=== PATIENT | female | born 1990 | race Caucasian/White ===

== ENCOUNTER 2023-03-06 13:50 | Emergency (ER) | payer BC ==
[2023-03-06 14:04] VITALS: RESP 18
[2023-03-06] MEDS ORDERED: SODIUM CHLORIDE 0.9% 1,000 ML IV STA (14:05)
--- NOTE | 2023-03-06 14:12 | ED ---
SOB HPI - General Chief Complaint: Shortness of Breath Stated Complaint: Increased heart rate Time Seen by Provider: 03/06/23 13:53 Source: patient, EMS, RN notes reviewed Mode of arrival: EMS Limitations: no limitations - History of Present Illness Initial Comments: This is a 32-year-old female who presents to the emergency department for shortness of breath and palpitations. Patient states she was sitting at her desk at work, when she started to feel like her heart was racing and she couldn't breathe. She then started to feel very dizzy, weak, and nauseous. States that she currently feels generally unwell and tired. Denies any chest pain. Denies any history of similar symptoms in the past. States that yesterday she felt fine. 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 MD Complaint: shortness of breath - Related Data Home Medications Medication Instructions Recorded Confirmed No Known Home Medications 03/06/23 03/06/23 Allergies Allergy/AdvReac Type Severity Reaction Status Date / Time No Known Allergies Allergy Verified 03/06/23 14:21 Review of Systems ROS Statement: Those systems with pertinent positive or pertinent negative responses have been documented in the HPI. ROS Other: All systems not noted in ROS Statement are negative. Past Medical History Past Medical History: Thyroid Disorder Additional Past Medical History / Comment(s): Leslye History of Any Multi-Drug Resistant Organisms: None Reported Past Surgical History: No Surgical Hx Reported Past Psychological History: Anxiety Smoking Status: Vaper Past Alcohol Use History: Occasional Past Drug Use History: None Reported General Exam Limitations: no limitations General appearance: alert, in no apparent distress Head exam: Present: atraumatic, normocephalic, normal inspection Respiratory exam: Present: normal lung sounds bilaterally. Absent: respiratory distress, wheezes, rales, rhonchi, stridor Cardiovascular Exam: Present: normal rhythm, tachycardia Neurological exam: Present: alert, oriented X3, CN II-XII intact Psychiatric exam: Present: normal affect, normal mood Skin exam: Present: warm, dry, intact, normal color. Absent: rash Course Vital Signs 03/06/23 03/06/23 03/06/23 13:53 15:34 16:36 Temperature 98.2 F 98.6 F Pulse Rate 105 H 93 85 Respiratory 18 18 18 Rate Blood Pressure 125/70 117/58 116/60 O2 Sat by Pulse 100 100 98 Oximetry Medical Decision Making - Medical Decision Making This is a 32-year-old female who presents to the emergency department for shortness of breath and palpitations. Was pt. sent in by a medical professional or institution? @ -No Did you speak to anyone other than the patient for history? @ -No Did you review nursing and triage notes? @ -Yes, and I agree, it is accurate with regards to the patient's symptoms. Were old charts reviewed? @ -No Differential Diagnosis? @ -Differential Dyspnea: Coronary syndrome, arrhythmia, tamponade, asthma, COPD, pulmonary embolism, pneumonia, pneumothorax, pulmonary effusion, anaphylaxis, diabetic ketoacidosis, flailed chest, pulmonary contusion, diaphragmatic rupture, anemia, neuromuscular, this is not meant to be an all-inclusive list. EKG interpreted by me (3pts min.)? @ -EKG interpreted by me demonstrating the following: Sinus rhythm. Ventricular rate 91 beats per minute, DC interval 126 ms, QRS duration 92 ms, QTC 397 ms. X-rays interpreted by me (1pt min.)? @ -Chest x-ray obtained, my interpretation identifies no localized consolidations or infiltrates. CT interpreted by me (1pt min.)? @ -Not obtained U/S interpreted by me (1pt. min.)? @ -Not obtained What testing was considered but not performed? (CT, X-rays, U/S, labs)? Why? @ -None What meds were considered but not given? Why? @ -None Did you discuss the management of the patient with other professionals? @ -No Did you reconcile home meds? @ -No Was smoking cessation discussed for >3mins.? @ -No Was critical care preformed (if so, how long)? @ -No Were there social determinants of health that impacted care today? How? (H omelessness, low income, unemployed, alcoholism, drug addiction, transportation, low edu. Level, literacy, decrease access to med. care, assisted, rehab)? @ -No Was there de-escalation of care discussed even if they declined? (Discuss DNR or withdrawal of care, Hospice)? @ -No What co-morbidities impacted this encounter? (DM, HTN, Smoking, COPD, CAD, Cancer, CVA, Hep., AIDS, mental health diagnosis, sleep apnea, morbid obesity)? @ -Leslye's disease Was patient admitted / discharged? @ -Discharged. Lab work obtained revealing leukocytosis and no other actionable findings. D-dimer and troponin are negative. TSH is within normal limits. Chest x-ray reveals no acute process. Urinalysis negative for signs of infection. Patient was given a 1L bolus of IV fluids and on reevaluation she felt significantly improved. Advised that the cause of this episode is not entirely clear, and we discussed that she needs to have close follow-up with her primary care provider for reevaluation. Undiagnosed new problem with uncertain prognosis? @ -None Drug Therapy requiring intensive monitoring for toxicity (Heparin, Nitro, Insulin, Cardizem)? @ -None Were any procedures done? @ -None Diagnosis/symptom? @ -Palpitations, tachycardia, dizziness Acute, or Chronic, or Acute on Chronic? @ -Acute Uncomplicated (without systemic symptoms) or Complicated (systemic symptoms)? @ -Uncomplicated Side effects of treatment? @ -None Exacerbation, Progression, or Severe Exacerbation] @ -Not applicable Poses a threat to life or bodily function? @ -Unclear, this will depend on the cause of her symptoms. Return precautions reviewed in depth, the patient is instructed to return to the emergency department with any new, worsening, or concerning symptoms. Patient verbalized understanding. This case was discussed in detail with the attending ED physician, Dr. Aggarwal. Presentation, findings, and treatment plan discussed in detail as well. - Lab Data Result diagrams: 03/06/23 14:16 03/06/23 14:16 Lab Results 03/06/23 03/06/23 03/06/23 Range/Units 14:16 14:16 14:16 WBC 12.5 H (3.8-10.6) k/uL RBC 4.40 (3.80-5.40) m/uL Hgb 13.6 (11.4-16.0) gm/dL Hct 41.2 (34.0-46.0) % MCV 93.7 (80.0-100.0) fL MCH 31.0 (25.0-35.0) pg MCHC 33.0 (31.0-37.0) g/dL RDW 12.2 (11.5-15.5) % Plt Count 310 (150-450) k/uL MPV 7.3 Neutrophils % 73 % Lymphocytes % 18 % Monocytes % 6 % Eosinophils % 1 % Basophils % 0 % Neutrophils # 9.2 H (1.3-7.7) k/uL Lymphocytes # 2.2 (1.0-4.8) k/uL Monocytes # 0.7 (0-1.0) k/uL Eosinophils # 0.2 (0-0.7) k/uL Basophils # 0.0 (0-0.2) k/uL PT 10.7 (10.0-12.5) sec INR 1.0 (<1.2) APTT 22.9 (22.0-30.0) sec D-Dimer 0.42 (<0.60) mg/L FEU Sodium 138 (137-145) mmol/L Potassium 3.9 (3.5-5.1) mmol/L Chloride 105 (98-107) mmol/L Carbon Dioxide 22 (22-30) mmol/L Anion Gap 11 mmol/L BUN 13 (7-17) mg/dL Creatinine 0.75 (0.52-1.04) mg/dL Est GFR (CKD-EPI)AfAm >90 (>60 ml/min/1.73 sqM) Est GFR (CKD-EPI)NonAf >90 (>60 ml/min/1.73 sqM) Glucose 106 H (74-99) mg/dL Plasma Lactic Acid [place] (0.7-2.0) mmol/L Calcium 9.0 (8.4-10.2) mg/dL Total Bilirubin 0.3 (0.2-1.3) mg/dL AST 21 (14-36) U/L ALT 18 (4-34) U/L Alkaline Phosphatase 85 (38-126) U/L Troponin I (0.000-0.034) ng/mL Total Protein 7.0 (6.3-8.2) g/dL Albumin 4.1 (3.5-5.0) g/dL TSH 1.320 (0.465-4.680) mIU/L HCG, Qual Not Detected Urine Color Urine Appearance (Clear) Urine pH (5.0-8.0) Ur Specific [place] (1.001-1.035) Urine Protein (Negative) Urine Glucose (UA) (Negative) Urine Ketones (Negative) Urine Blood (Negative) Urine Nitrite (Negative) Urine Bilirubin (Negative) Urine Urobilinogen (<2.0) mg/dL Ur Leukocyte Esterase (Negative) Urine WBC (0-5) /hpf Ur Squamous Epith Cells (0-4) /hpf Urine Bacteria (None) /hpf Urine Mucus (None) /hpf 03/06/23 03/06/23 03/06/23 Range/Units 14:16 14:16 15:23 WBC (3.8-10.6) k/uL RBC (3.80-5.40) m/uL Hgb (11.4-16.0) gm/dL Hct (34.0-46.0) % MCV (80.0-100.0) fL MCH (25.0-35.0) pg MCHC (31.0-37.0) g/dL RDW (11.5-15.5) % Plt Count (150-450) k/uL MPV Neutrophils % % Lymphocytes % % Monocytes % % Eosinophils % % Basophils % % Neutrophils # (1.3-7.7) k/uL Lymphocytes # (1.0-4.8) k/uL Monocytes # (0-1.0) k/uL Eosinophils # (0-0.7) k/uL Basophils # (0-0.2) k/uL PT (10.0-12.5) sec INR (<1.2) APTT (22.0-30.0) sec D-Dimer (<0.60) mg/L FEU Sodium (137-145) mmol/L Potassium (3.5-5.1) mmol/L Chloride (98-107) mmol/L Carbon Dioxide (22-30) mmol/L Anion Gap mmol/L BUN (7-17) mg/dL Creatinine (0.52-1.04) mg/dL Est GFR (CKD-EPI)AfAm (>60 ml/min/1.73 sqM) Est GFR (CKD-EPI)NonAf (>60 ml/min/1.73 sqM) Glucose (74-99) mg/dL Plasma Lactic Acid [place] 1.7 (0.7-2.0) mmol/L Calcium (8.4-10.2) mg/dL Total Bilirubin (0.2-1.3) mg/dL AST (14-36) U/L ALT (4-34) U/L Alkaline Phosphatase (38-126) U/L Troponin I <0.012 (0.000-0.034) ng/mL Total Protein (6.3-8.2) g/dL Albumin (3.5-5.0) g/dL TSH (0.465-4.680) mIU/L HCG, Qual Urine Color Colorless Urine Appearance Cloudy H (Clear) Urine pH 6.0 (5.0-8.0) Ur Specific [place] 1.015 (1.001-1.035) Urine Protein Negative (Negative) Urine Glucose (UA) Negative (Negative) Urine Ketones Negative (Negative) Urine Blood Negative (Negative) Urine Nitrite Negative (Negative) Urine Bilirubin Negative (Negative) Urine Urobilinogen <2.0 (<2.0) mg/dL Ur Leukocyte Esterase Negative (Negative) Urine WBC 2 (0-5) /hpf Ur Squamous Epith Cells 7 H (0-4) /hpf Urine Bacteria Few H (None) /hpf Urine Mucus Occasional H (None) /hpf - Radiology Data Radiology results: report reviewed, image reviewed Disposition Clinical Impression: Palpitations, Tachycardia, Dizziness Disposition: HOME SELF-CARE Instructions (If sedation given, give patient instructions): Heart Palpitations (ED) Additional Instructions: Return to the emergency department with any new, worsening, or concerning symptoms. Follow up with your primary care provider in 1-2 days. Is patient prescribed a controlled substance at d/c from ED?: No Referrals: Naz Aj DO [Primary Care Provider] - 1-2 days
[2023-03-06 14:27] LABS: Basophils % (A) 0 %; Eosinophils # (A) 0.2 k/uL (0-0.7); Eosinophils % (A) 1 %; HCT 41.2 % (34.0-46.0); HGB 13.6 gm/dL (11.4-16.0); Lymphocytes # (A) 2.2 k/uL (1.0-4.8); Lymphocytes % (A) 18 %; MCV 93.7 fL (80.0-100.0); Mean Platelet Volume 7.3; Monocytes # (A) 0.7 k/uL (0-1.0); Monocytes % (A) 6 %; Neutrophils # (A) 9.2 k/uL (1.3-7.7); Neutrophils % (A) 73 %; Platelet Count 310 k/uL (150-450); RDW 12.2 % (11.5-15.5); WBC 12.5 k/uL (3.8-10.6)
[2023-03-06 14:40] LABS: Partial Thromboplastin Time 22.9 sec (22.0-30.0); Prothrombin Time 10.7 sec (10.0-12.5)
--- NOTE | 2023-03-06 14:42 | XR ---
EXAMINATION TYPE: XR chest 2V DATE OF EXAM: 03/06/2023 2:38 PM COMPARISON: None TECHNIQUE: XR chest 2V Frontal and lateral views of the chest. CLINICAL INDICATION:Female, 32 years old with history of difficulty breathing; FINDINGS: Lungs/Pleura: There is no evidence of pleural effusion, focal consolidation, or pneumothorax. Pulmonary vascularity: Unremarkable. Heart/mediastinum: Cardiomediastinal silhouette is unremarkable. Musculoskeletal: No acute osseous pathology. IMPRESSION: No acute cardiopulmonary disease/process.
[2023-03-06 14:46] LABS: ALT 18 U/L (4-34); AST 21 U/L (14-36); African American GFR (CKD) >90 (>60 ml/min/1.73 sqM); Albumin 4.1 g/dL (3.5-5.0); Alkaline Phosphatase 85 U/L (38-126); Anion Gap 11 mmol/L; Blood Urea Nitrogen 13 mg/dL (7-17); Carbon Dioxide 22 mmol/L (22-30); Chloride 105 mmol/L (98-107); Glucose 106 mg/dL (74-99); Non-African American GFR(CKD) >90 (>60 ml/min/1.73 sqM); Potassium 3.9 mmol/L (3.5-5.1); Sodium 138 mmol/L (137-145); Total Bilirubin 0.3 mg/dL (0.2-1.3)
[2023-03-06 15:29] LABS: HCG,Qualitative Serum Not Detected
[2023-03-06 16:17] LABS: Appearance,Urine Cloudy (Clear); Bacteria,Urine Few /hpf; Bilirubin,Urine Negative (Negative); Blood,Urine Negative (Negative); Color,Urine Colorless; Glucose,Urine (UA) Negative (Negative); Ketones,Urine Negative (Negative); Leukocyte Esterase,Urine Negative (Negative); Mucus,Urine Occasional /hpf; Nitrite,Urine Negative (Negative); Protein,Urine Negative (Negative); Specific Gravity,Urine 1.015 (1.001-1.035); Squamous Epithelial Cell,Urine 7 /hpf (0-4); Urobilinogen,Urine <2.0 mg/dL (<2.0); WBC,Urine 2 /hpf (0-5)
[2023-03-06 16:45] VITALS: BP 116/60; PULSE 85; TEMP 98.6
== END 2023-03-06 16:47 | disposition home or self-care (01) ==
LOC: EC 13:50
DX: R00.2 Palpitations (principal); R00.0 Tachycardia, unspecified; R42 Dizziness and giddiness; F17.290 Nicotine dependence, other tobacco product, uncomplicated
CPT/HCPCS: 36415; 71046; 80053; 81001; 83605; 84443; 84484; 84703; 85025; 85379; 85610; 85730; 93005; 96360; 99285

== ENCOUNTER 2023-03-07 08:47 | Emergency (ER) | payer BC ==
[2023-03-07 08:58] VITALS: TEMP 98.5
[2023-03-07] MEDS ORDERED: SODIUM CHLORIDE 0.9% 1,000 ML IV STA (09:06)
--- NOTE | 2023-03-07 09:09 | ED ---
General Adult HPI - General Chief complaint: Arrhythmia/Palpitations Stated complaint: High Heart Rate,SOB Time Seen by Provider: 03/07/23 08:54 Source: patient, family, RN notes reviewed Mode of arrival: ambulatory Limitations: no limitations - History of Present Illness Initial comments: Patient is a pleasant 32-year-old female presenting to the emergency department with concerns for palpitations. Onset of symptoms was during sleep. Patient checked on her fit bit and heart rate was up to 150. Patient states this lasted around 2 minutes. Patient had similar symptoms yesterday. Patient has had similar symptoms previously as well however not as severe. Patient is currently symptom-free at this time. Patient states she has not had an echo or Holter monitor for this. - Related Data Home Medications Medication Instructions Recorded Confirmed No Known Home Medications 03/06/23 03/06/23 Allergies Allergy/AdvReac Type Severity Reaction Status Date / Time No Known Allergies Allergy Verified 03/07/23 08:51 Review of Systems ROS Statement: Those systems with pertinent positive or pertinent negative responses have been documented in the HPI. ROS Other: All systems not noted in ROS Statement are negative. Constitutional: Denies: fever Eyes: Denies: eye pain ENT: Denies: ear pain Respiratory: Denies: cough Cardiovascular: Reports: as per HPI, palpitations. Denies: chest pain Endocrine: Denies: fatigue Gastrointestinal: Denies: abdominal pain Genitourinary: Denies: dysuria Musculoskeletal: Denies: back pain Past Medical History Past Medical History: Thyroid Disorder Additional Past Medical History / Comment(s): Leslye History of Any Multi-Drug Resistant Organisms: None Reported Past Surgical History: No Surgical Hx Reported Past Psychological History: Anxiety Smoking Status: Vaper Past Alcohol Use History: Occasional Past Drug Use History: None Reported General Exam Limitations: no limitations General appearance: alert, in no apparent distress Head exam: Present: normocephalic Eye exam: Present: normal appearance Neck exam: Present: normal inspection Respiratory exam: Present: normal lung sounds bilaterally Cardiovascular Exam: Present: regular rate, normal rhythm, normal heart sounds Expanded Peripheral pulses: 2+: Radial (R), Radial (L), Dorsalis Pedis (R), Dorsalis Pedis (L) GI/Abdominal exam: Present: soft. Absent: tenderness Extremities exam: Present: normal inspection. Absent: pedal edema, calf tenderness Neurological exam: Present: alert Psychiatric exam: Present: normal affect, normal mood Skin exam: Present: normal color Course Vital Signs 03/07/23 03/07/23 03/07/23 08:48 08:53 09:05 Temperature 98.5 F Pulse Rate 78 Pulse Rate [ 75 Management Expert ] Respiratory 18 18 Rate Blood Pressure 125/81 O2 Sat by Pulse 98 Oximetry 03/07/23 03/07/23 03/07/23 09:16 09:30 09:45 Temperature Pulse Rate 58 L 89 67 Pulse Rate [ Management Expert ] Respiratory 16 17 16 Rate Blood Pressure 111/74 111/74 111/74 O2 Sat by Pulse 98 100 100 Oximetry 03/07/23 10:00 Temperature Pulse Rate 61 Pulse Rate [ Management Expert ] Respiratory 18 Rate Blood Pressure 101/65 O2 Sat by Pulse 99 Oximetry EKG Findings - EKG Results: EKG: interpreted by ESTRELLAD (Nonspecific ST-T.), sinus rhythm, normal axis, normal QRS Medical Decision Making - Medical Decision Making Was pt. sent in by a medical professional or institution (, PA, [facility], urgent care, hospital, or longterm...) When possible be specific @ -No Did you speak to anyone other than the patient for history (EMS, parent, family, police, friend...)? What history was obtained from this source @ -No Did you review nursing and triage notes (agree or disagree)? Why? @ -I reviewed and agree with nursing and triage notes Were old charts reviewed (outside hosp., previous admission, EMS record, old EKG, old radiological studies, urgent care reports/EKG's, longterm records)? Report findings @ -There is EKG reviewed Differential Diagnosis (chest pain, altered mental status, abdominal pain women, abdominal pain men, vaginal bleeding, weakness, fever, dyspnea, syncope, headache, dizziness, GI bleed, back pain, seizure, CVA, palpatations, mental health, musculoskeletal)? @ -Differential Palpitations Ventricular arrhythmias, atrial arrhythmias, myocardial infarction, anemia, thyrotoxicosis, electrolyte imbalance, hypokalemia, pulmonary embolism, pulmona ry disease, drugs, alcohol, anxiety, stress.... This is not meant to be an all-inclusive list. EKG interpreted by me (3pts min.). @ -As above X-rays interpreted by me (1pt min.). @ -Chest x-ray shows no acute process CT interpreted by me (1pt min.). @ -None done U/S interpreted by me (1pt. min.). @ -None done What testing was considered but not performed or refused? (CT, X-rays, U/S, labs)? Why? @ -None What meds were considered but not given or refused? Why? @ -None Did you discuss the management of the patient with other professionals (professionals i.e. , PA, [facility], lab, RT, psych nurse, social services analyst, pipe straightener, teacher, court officer, clinical case manager)? Give summary @ -No Was smoking cessation discussed for >3mins.? @ -No Was critical care preformed (if so, how long)? @ -No Were there social determinants of health that impacted care today? How? (Homelessness, low income, unemployed, alcoholism, drug addiction, transportation, low edu. Level, literacy, decrease access to med. care, group home, rehab)? @ -No Was there de-escalation of care discussed even if they declined (Discuss DNR or withdrawal of care, Hospice)? DNR status @ -No What co-morbidities impacted this encounter? (DM, HTN, Smoking, COPD, CAD, Cancer, CVA, ARF, Chemo, Hep., AIDS, mental health diagnosis, sleep apnea, morbid obesity)? @ -None Was patient admitted / discharged? Hospital course, mention meds given and route, prescriptions, significant lab abnormalities, going to OR and other pertinent info. @ -Patient reevaluated. Patient family updated on results and plan. Patient will need follow-up with further investigation. Undiagnosed new problem with uncertain prognosis? @ -No Drug Therapy requiring intensive monitoring for toxicity (Heparin, Nitro, Insulin, Cardizem)? @ -No Were any procedures done? @ -No Diagnosis/symptom? @ -Palpitations, tachycardia Acute, or Chronic, or Acute on Chronic? @ -Acute, acute Uncomplicated (without systemic symptoms) or Complicated (systemic symptoms)? @ -default Side effects of treatment? @ -No Exacerbation, Progression, or Severe Exacerbation? @ -No Poses a threat to life or bodily function? How? (Chest pain, [place], [place], pneumonia, PE, COPD, DKA, ARF, appy, cholecystitis, CVA, Diverticulitis, Homicidal, Suicidal, threat to staff... and all critical care pts) @ -No - Lab Data Result diagrams: 03/07/23 09:09 03/07/23 09:09 Lab Results 03/07/23 03/07/23 03/07/23 Range/Units 09:09 09:09 09:09 WBC 8.2 (3.8-10.6) k/uL RBC 4.40 (3.80-5.40) m/uL Hgb 13.5 (11.4-16.0) gm/dL Hct 40.7 (34.0-46.0) % MCV 92.5 (80.0-100.0) fL MCH 30.8 (25.0-35.0) pg MCHC 33.3 (31.0-37.0) g/dL RDW 12.2 (11.5-15.5) % Plt Count 318 (150-450) k/uL MPV 7.3 Neutrophils % 73 % Lymphocytes % 20 % Monocytes % 5 % Eosinophils % 1 % Basophils % 0 % Neutrophils # 6.0 (1.3-7.7) k/uL Lymphocytes # 1.6 (1.0-4.8) k/uL Monocytes # 0.4 (0-1.0) k/uL Eosinophils # 0.1 (0-0.7) k/uL Basophils # 0.0 (0-0.2) k/uL PT 11.0 (10.0-12.5) sec INR 1.0 (<1.2) APTT 25.6 (22.0-30.0) sec Sodium 139 (137-145) mmol/L Potassium 4.1 (3.5-5.1) mmol/L Chloride 108 H (98-107) mmol/L Carbon Dioxide 22 (22-30) mmol/L Anion Gap 9 mmol/L BUN 8 (7-17) mg/dL Creatinine 0.69 (0.52-1.04) mg/dL Est GFR (CKD-EPI)AfAm >90 (>60 ml/min/1.73 sqM) Est GFR (CKD-EPI)NonAf >90 (>60 ml/min/1.73 sqM) Glucose 95 (74-99) mg/dL Calcium 9.2 (8.4-10.2) mg/dL Magnesium 2.1 (1.6-2.3) mg/dL Total Bilirubin 0.9 (0.2-1.3) mg/dL AST 21 (14-36) U/L ALT 19 (4-34) U/L Alkaline Phosphatase 63 (38-126) U/L Troponin I (0.000-0.034) ng/mL Total Protein 7.0 (6.3-8.2) g/dL Albumin 4.1 (3.5-5.0) g/dL TSH 1.020 (0.465-4.680) mIU/L Free T4 1.49 (0.78-2.19) ng/dL Free T3 pg/mL 3.8 (2.8-5.3) pg/ml 03/07/23 Range/Units 09:09 WBC (3.8-10.6) k/uL RBC (3.80-5.40) m/uL Hgb (11.4-16.0) gm/dL Hct (34.0-46.0) % MCV (80.0-100.0) fL MCH (25.0-35.0) pg MCHC (31.0-37.0) g/dL RDW (11.5-15.5) % Plt Count (150-450) k/uL MPV Neutrophils % % Lymphocytes % % Monocytes % % Eosinophils % % Basophils % % Neutrophils # (1.3-7.7) k/uL Lymphocytes # (1.0-4.8) k/uL Monocytes # (0-1.0) k/uL Eosinophils # (0-0.7) k/uL Basophils # (0-0.2) k/uL PT (10.0-12.5) sec INR (<1.2) APTT (22.0-30.0) sec Sodium (137-145) mmol/L Potassium (3.5-5.1) mmol/L Chloride (98-107) mmol/L Carbon Dioxide (22-30) mmol/L Anion Gap mmol/L BUN (7-17) mg/dL Creatinine (0.52-1.04) mg/dL Est GFR (CKD-EPI)AfAm (>60 ml/min/1.73 sqM) Est GFR (CKD-EPI)NonAf (>60 ml/min/1.73 sqM) Glucose (74-99) mg/dL Calcium (8.4-10.2) mg/dL Magnesium (1.6-2.3) mg/dL Total Bilirubin (0.2-1.3) mg/dL AST (14-36) U/L ALT (4-34) U/L Alkaline Phosphatase (38-126) U/L Troponin I <0.012 (0.000-0.034) ng/mL Total Protein (6.3-8.2) g/dL Albumin (3.5-5.0) g/dL TSH (0.465-4.680) mIU/L Free T4 (0.78-2.19) ng/dL Free T3 pg/mL (2.8-5.3) pg/ml Disposition Clinical Impression: Palpitations, Tachycardia Disposition: HOME SELF-CARE Condition: Stable Instructions (If sedation given, give patient instructions): Heart Palpitations (ED) Additional Instructions: Please do follow-up to primary care physician beginning of the week. Have primary care physician consider echo. Have primary care physician consider H olter monitor. Return for increased heart rate, pain, difficulty breathing, fevers, passing out, worsening or change in symptoms or other concerns. Is patient prescribed a controlled substance at d/c from ED?: No Referrals: Naz Aj DO [Primary Care Provider] - 1-2 days Time of Disposition: 11:43
--- NOTE | 2023-03-07 09:22 | XR ---
EXAMINATION TYPE: XR chest 2V DATE OF EXAM: 03/07/2023 9:14 AM CLINICAL INDICATION:Female, 32 years old with history of dysrhythmia; [facility] COMPARISON: Chest radiograph from one day prior. TECHNIQUE: XR chest 2V Frontal and lateral views of the chest. FINDINGS: Lungs/Pleura: There is no evidence of pleural effusion, focal consolidation, or pneumothorax. Pulmonary vascularity: Unremarkable. Heart/mediastinum: Cardiomediastinal silhouette is unremarkable. Musculoskeletal: No acute osseous pathology. Other findings: None IMPRESSION: No acute cardiopulmonary disease/process.
[2023-03-07 09:28] LABS: Basophils % (A) 0 %; Eosinophils # (A) 0.1 k/uL (0-0.7); Eosinophils % (A) 1 %; HCT 40.7 % (34.0-46.0); HGB 13.5 gm/dL (11.4-16.0); Lymphocytes # (A) 1.6 k/uL (1.0-4.8); Lymphocytes % (A) 20 %; MCH 30.8 pg (25.0-35.0); MCHC 33.3 g/dL (31.0-37.0); MCV 92.5 fL (80.0-100.0); Mean Platelet Volume 7.3; Monocytes # (A) 0.4 k/uL (0-1.0); Monocytes % (A) 5 %; Neutrophils % (A) 73 %; Platelet Count 318 k/uL (150-450); RDW 12.2 % (11.5-15.5); WBC 8.2 k/uL (3.8-10.6)
[2023-03-07 09:39] LABS: Partial Thromboplastin Time 25.6 sec (22.0-30.0)
[2023-03-07 09:58] LABS: ALT 19 U/L (4-34); AST 21 U/L (14-36); African American GFR (CKD) >90 (>60 ml/min/1.73 sqM); Albumin 4.1 g/dL (3.5-5.0); Alkaline Phosphatase 63 U/L (38-126); Anion Gap 9 mmol/L; Blood Urea Nitrogen 8 mg/dL (7-17); Calcium 9.2 mg/dL (8.4-10.2); Carbon Dioxide 22 mmol/L (22-30); Chloride 108 mmol/L (98-107); Glucose 95 mg/dL (74-99); Magnesium 2.1 mg/dL (1.6-2.3); Non-African American GFR(CKD) >90 (>60 ml/min/1.73 sqM); Potassium 4.1 mmol/L (3.5-5.1); Sodium 139 mmol/L (137-145); Total Bilirubin 0.9 mg/dL (0.2-1.3)
[2023-03-07 11:12] LABS: T4, Free (Free Thyroxine) 1.49 ng/dL (0.78-2.19)
[2023-03-07 14:23] VITALS: BP 109/74; PULSE 68; RESP 18
== END 2023-03-07 14:05 | disposition home or self-care (01) ==
LOC: EC 08:47
DX: R00.0 Tachycardia, unspecified (principal); F17.290 Nicotine dependence, other tobacco product, uncomplicated; Z86.59 Personal history of other mental and behavioral disorders
CPT/HCPCS: 36415; 71046; 80053; 83735; 84439; 84443; 84481; 84484; 85025; 85610; 85730; 93005; 96360; 96361; 99285

== ENCOUNTER 2023-04-13 10:52 | Observation (INO) | payer BC ==
[2023-04-13] MEDS ORDERED: SODIUM CHLORIDE 0.9% 500 ML 500 ML IV STA (11:37)
[2023-04-13 12:05] LABS: Basophils % (A) 0 %; Eosinophils % (A) 0 %; HCT 42.2 % (34.0-46.0); HGB 13.7 gm/dL (11.4-16.0); Lymphocytes # (A) 3.3 k/uL (1.0-4.8); Lymphocytes % (A) 26 %; MCH 30.1 pg (25.0-35.0); MCHC 32.6 g/dL (31.0-37.0); MCV 92.4 fL (80.0-100.0); Mean Platelet Volume 8.4; Monocytes # (A) 0.8 k/uL (0-1.0); Monocytes % (A) 7 %; Neutrophils # (A) 8.1 k/uL (1.3-7.7); Neutrophils % (A) 65 %; Platelet Count 292 k/uL (150-450); RBC 4.57 m/uL (3.80-5.40); RDW 12.3 % (11.5-15.5); WBC 12.5 k/uL (3.8-10.6)
[2023-04-13 12:16] LABS: ALT 21 U/L (4-34); AST 23 U/L (14-36); African American GFR (CKD) >90 (>60 ml/min/1.73 sqM); Albumin 4.4 g/dL (3.5-5.0); Alkaline Phosphatase 56 U/L (38-126); Anion Gap 12 mmol/L; Blood Urea Nitrogen 11 mg/dL (7-17); Calcium 9.4 mg/dL (8.4-10.2); Carbon Dioxide 20 mmol/L (22-30); Chloride 107 mmol/L (98-107); Glucose 87 mg/dL (74-99); Magnesium 1.9 mg/dL (1.6-2.3); Non-African American GFR(CKD) >90 (>60 ml/min/1.73 sqM); Sodium 139 mmol/L (137-145); Total Bilirubin 0.9 mg/dL (0.2-1.3); Total Protein 7.5 g/dL (6.3-8.2)
--- NOTE | 2023-04-13 12:19 | XR ---
EXAMINATION TYPE: XR chest 2V DATE OF EXAM: 04/13/2023 COMPARISON: 03/07/2023 INDICATION: Dysrhythmia TECHNIQUE: Frontal and lateral views of the chest are obtained. FINDINGS: The heart size is normal. The pulmonary vasculature is normal. The lungs are clear. IMPRESSION: 1. No acute pulmonary process.
[2023-04-13 12:21] LABS: Amphetamine Screen,Urine Not Detected (NotDetected); Barbiturate Screen,Urine Not Detected (NotDetected); Benzodiazepines Screen,Urine Not Detected (NotDetected); Cocaine Screen,Urine Not Detected (NotDetected); Methadone Screen, Urine Not Detected (NotDetected); Opiate Screen,Urine Not Detected (NotDetected); Oxycodone Screen, Urine Not Detected (NotDetected); Phencyclidine Screen,Urine Not Detected (NotDetected); Tricyclic Antidepressant,Urine Not Detected (NotDetected); Urn Cannabinoid Scrn Not Detected (NotDetected)
--- NOTE | 2023-04-13 12:23 | ED ---
General Adult HPI - General Chief complaint: Chest Pain Stated complaint: Chest Pain Time Seen by Provider: 04/13/23 11:05 Source: patient, EMS, RN notes reviewed, old records reviewed Mode of arrival: EMS Limitations: no limitations - History of Present Illness Initial comments: This is a 32-year-old female presents emergency department with past medical history significant for Leslye's disease. Patient also states in the last month and a half she's been having episodes of tachycardia and she's been noticing this on her foot. Patient states she's been to the hospital multiple times had an echocardiogram as well as a monitor and her heart but is not cardiac at the results. Patient states over the last 2 weeks she's had this episode at least every day and sometimes she gets lightheaded and feels like she can a passout and it is only resolved when she lays down and relaxes. Currently patient is not have any symptoms. Patient states that the symptoms began with chest pain first and then she felt the tachycardia, later and she also was mildly short of breath per patient states if she standing she becomes very lightheaded and thinks started to go black as if she is going to pass out. Patient at that point time typically lies down so she does not fall get hurt. - Related Data Home Medications Medication Instructions Recorded Confirmed No Known Home Medications 03/06/23 03/06/23 Allergies Allergy/AdvReac Type Severity Reaction Status Date / Time No Known Allergies Allergy Verified 03/07/23 08:51 Review of Systems ROS Statement: Those systems with pertinent positive or pertinent negative responses have been documented in the HPI. ROS Other: All systems not noted in ROS Statement are negative. Past Medical History Past Medical History: Thyroid Disorder Additional Past Medical History / Comment(s): Leslye History of Any Multi-Drug Resistant Organisms: None Reported Past Surgical History: No Surgical Hx Reported Past Psychological History: Anxiety Smoking Status: Vaper Past Alcohol Use History: Occasional Past Drug Use History: None Reported General Exam - General Exam Comments Initial Comments: GENERAL: Patient is well-developed and well-nourished. Patient is nontoxic and well- hydrated and is in mild distress. ENT: Neck is soft and supple. No significant lymphadenopathy is noted. Oropharynx is clear. Moist mucous membranes. Neck has full range of motion without eliciting any pain. EYES: The sclera were anicteric and conjunctiva were pink and moist. Extraocular movements were intact and pupils were equal round and reactive to light. Eyelids were unremarkable. PULMONARY: Unlabored respirations. Good breath sounds bilaterally. No audible rales rhonchi or wheezing was noted. CARDIOVASCULAR: There is a regular rate and rhythm without any murmurs gallops or rubs. ABDOMEN: Soft and nontender with normal bowel sounds. SKIN: Skin is clear with no lesions or rashes and otherwise unremarkable. NEUROLOGIC: Patient is alert and oriented x3. Cranial nerves II through XII are grossly intact. Motor and sensory are also intact. Normal speech, volume and content. Symmetrical smile. MUSCULOSKELETAL: Normal extremities with adequate strength and full range of motion. No lower extremity swelling or edema. No calf tenderness. LYMPHATICS: No significant lymphadenopathy is noted PSYCHIATRIC: Normal psychiatric evaluation. Limitations: no limitations Course Vital Signs 04/13/23 04/13/23 04/13/23 10:54 10:58 11:24 Temperature 99.1 F Pulse Rate 65 97 Pulse Rate [ 94 Filling Layer Up ] Respiratory 18 12 Rate Blood Pressure 122/90 O2 Sat by Pulse 100 100 Oximetry 04/13/23 04/13/23 04/13/23 11:26 11:28 11:30 Temperature Pulse Rate 69 98 78 Pulse Rate [ Filling Layer Up ] Respiratory 18 17 Rate Blood Pressure O2 Sat by Pulse 100 100 100 Oximetry 04/13/23 04/13/23 04/13/23 11:32 11:34 11:36 Temperature Pulse Rate 89 75 87 Pulse Rate [ Filling Layer Up ] Respiratory Rate Blood Pressure O2 Sat by Pulse 99 100 100 Oximetry 04/13/23 04/13/23 04/13/23 11:38 11:40 11:42 Temperature Pulse Rate 68 86 68 Pulse Rate [ Filling Layer Up ] Respiratory Rate Blood Pressure O2 Sat by Pulse 100 99 100 Oximetry 04/13/23 04/13/23 04/13/23 11:44 11:46 11:48 Temperature Pulse Rate 66 68 71 Pulse Rate [ Filling Layer Up ] Respiratory 18 Rate Blood Pressure O2 Sat by Pulse 100 100 100 Oximetry 04/13/23 04/13/23 04/13/23 11:50 11:52 11:54 Temperature Pulse Rate 66 77 65 Pulse Rate [ Filling Layer Up ] Respiratory 19 Rate Blood Pressure O2 Sat by Pulse 100 100 100 Oximetry 04/13/23 04/13/23 04/13/23 11:56 11:58 12:00 Temperature Pulse Rate 63 66 68 Pulse Rate [ Filling Layer Up ] Respiratory 17 Rate Blood Pressure O2 Sat by Pulse 99 100 100 Oximetry 04/13/23 04/13/23 04/13/23 12:02 12:04 12:06 Temperature Pulse Rate 65 68 76 Pulse Rate [ Filling Layer Up ] Respiratory 17 Rate Blood Pressure O2 Sat by Pulse 100 100 99 Oximetry 04/13/23 04/13/23 04/13/23 12:08 12:10 12:29 Temperature Pulse Rate 64 67 77 Pulse Rate [ Filling Layer Up ] Respiratory Rate Blood Pressure O2 Sat by Pulse 99 98 Oximetry 04/13/23 04/13/23 04/13/23 12:30 12:32 12:34 Temperature Pulse Rate 66 69 63 Pulse Rate [ Filling Layer Up ] Respiratory Rate Blood Pressure O2 Sat by Pulse 94 L 100 100 Oximetry 04/13/23 04/13/23 04/13/23 12:36 12:38 12:40 Temperature Pulse Rate 58 L 62 65 Pulse Rate [ Filling Layer Up ] Respiratory 17 Rate Blood Pressure O2 Sat by Pulse 100 100 100 Oximetry Medical Decision Making - Medical Decision Making EKG was interpreted by myself. EKG shows a sinus rhythm at 77 bpm OH interval 222 QRS is 90 QT interval 367 QTC is 398. Patient's EKG shows no ST segment elevation or there is some slight ST segment depression in the inferior leads. Was pt. sent in by a medical professional or institution (SHEREE Griffith, CLINICAL PRODUCT SPECIALIST, urgent care, hospital, or detention...) When possible be specific @ -No Did you speak to anyone other than the patient for history (EMS, parent, family, police, friend...)? What history was obtained from this source @ -No Did you review nursing and triage notes (agree or disagree)? Why? @ -I reviewed and agree with nursing and triage notes Were old charts reviewed (outside hosp., previous admission, EMS record, old EKG, old radiological studies, urgent care reports/EKG's, detention records)? Report findings @ -I reviewed prior charts prior lab work prior radiological studies Differential Diagnosis (chest pain, altered mental status, abdominal pain women, abdominal pain men, vaginal bleeding, weakness, fever, dyspnea, syncope, headache, dizziness, GI bleed, back pain, seizure, CVA, palpatations, mental health, musculoskeletal)? @ -Differential Palpitations Ventricular arrhythmias, atrial arrhythmias, myocardial infarction, anemia, thyrotoxicosis, electrolyte imbalance, hypokalemia, pulmonary embolism, pulmonary disease, drugs, alcohol, anxiety, stress.... This is not meant to be an all-inclusive list. EKG interpreted by me (3pts min.). @ -As above X-rays interpreted by me (1pt min.). @ -Chest x-ray shows no acute abnormality CT interpreted by me (1pt min.). @ -None done U/S interpreted by me (1pt. min.). @ -None done What testing was considered but not performed or refused? (CT, X-rays, U/S, labs)? Why? @ -None What meds were considered but not given or refused? Why? @ -None Did you discuss the management of the patient with other professionals (professionals i.e. , PA, CLINICAL PRODUCT SPECIALIST, lab, RT, psych nurse, social science teacher, chief of harbor patrol, teacher, drug abuse resistance education officer, heel caser)? Give summary @ -I spoke with Dr. Gilliam he agreed to admit the patient admitted the patient I consult cardiology Was smoking cessation discussed for >3mins.? @ -No Was critical care preformed (if so, how long)? @ -No Were there social determinants of health that impacted care today? How? (Homelessness, low income, unemployed, alcoholism, drug addiction, transportation, low edu. Level, literacy, decrease access to med. care, fdc, rehab)? @ -No Was there de-escalation of care discussed even if they declined (Discuss DNR or withdrawal of care, Hospice)? DNR status @ -No What co-morbidities impacted this encounter? (DM, HTN, Smoking, COPD, CAD, Cancer, CVA, ARF, Chemo, Hep., AIDS, mental health diagnosis, sleep apnea, morbid obesity)? @ -None Was patient admitted / discharged? Hospital course, mention meds given and route, prescriptions, significant lab abnormalities, going to OR and other pertinent info. @ -By the time the patient was in our bed and was able to get an EKG patient had converted to a normal sinus rhythm. Patient states she is terrified of going home because this is now occurring at least once a day to the point where she feels as though she did pass out and hurt herself. Patient states at work today she had to lay on the floor for over an hour. I spoke with Dr. Gilliam he agreed to admit the patient admitted the patient I wrote admitting orders I consulted cardiology Undiagnosed new problem with uncertain prognosis? @ -No Drug Therapy requiring intensive monitoring for toxicity (Heparin, Nitro, Insulin, Cardizem)? @ -No Were any procedures done? @ -No Diagnosis/symptom? @ -Tachycardia Acute, or Chronic, or Acute on Chronic? @ -Acute Uncomplicated (without systemic symptoms) or Complicated (systemic symptoms)? @ -Complicated Side effects of treatment? @ -No Exacerbation, Progression, or Severe Exacerbation? @ -No Poses a threat to life or bodily function? How? (Chest pain, USA, IA, pneumonia, PE, COPD, DKA, ARF, appy, cholecystitis, CVA, Diverticulitis, Homicidal, Suicidal, threat to staff... and all critical care pts) @ -Yes patient could become tachycardic and lightheaded and passed out. Diagnosis/symptom? @ -Near syncope Acute, or Chronic, or Acute on Chronic? @ -Acute Uncomplicated (without systemic symptoms) or Complicated (systemic symptoms)? @ -This is my normal physical exam. This is a test of creating a macro. Side effects of treatment? @ -none Exacerbation, Progression, or Severe Exacerbation] @ -no Poses a threat to life or bodily function? @ -no - Lab Data Result diagrams: 04/13/23 11:47 04/13/23 11:47 Lab Results 04/13/23 04/13/23 04/13/23 Range/Units 11:47 11:47 11:47 WBC 12.5 H (3.8-10.6) k/uL RBC 4.57 (3.80-5.40) m/uL Hgb 13.7 (11.4-16.0) gm/dL Hct 42.2 (34.0-46.0) % MCV 92.4 (80.0-100.0) fL MCH 30.1 (25.0-35.0) pg MCHC 32.6 (31.0-37.0) g/dL RDW 12.3 (11.5-15.5) % Plt Count 292 (150-450) k/uL MPV 8.4 Neutrophils % 65 % Lymphocytes % 26 % Monocytes % 7 % Eosinophils % 0 % Basophils % 0 % Neutrophils # 8.1 H (1.3-7.7) k/uL Lymphocytes # 3.3 (1.0-4.8) k/uL Monocytes # 0.8 (0-1.0) k/uL Eosinophils # 0.0 (0-0.7) k/uL Basophils # 0.0 (0-0.2) k/uL PT (10.0-12.5) sec INR (<1.2) APTT (22.0-30.0) sec Sodium 139 (137-145) mmol/L Potassium 3.7 (3.5-5.1) mmol/L Chloride 107 (98-107) mmol/L Carbon Dioxide 20 L (22-30) mmol/L Anion Gap 12 mmol/L BUN 11 (7-17) mg/dL Creatinine 0.60 (0.52-1.04) mg/dL Est GFR (CKD-EPI)AfAm >90 (>60 ml/min/1.73 sqM) Est GFR (CKD-EPI)NonAf >90 (>60 ml/min/1.73 sqM) Glucose 87 (74-99) mg/dL Calcium 9.4 (8.4-10.2) mg/dL Magnesium 1.9 (1.6-2.3) mg/dL Total Bilirubin 0.9 (0.2-1.3) mg/dL AST 23 (14-36) U/L ALT 21 (4-34) U/L Alkaline Phosphatase 56 (38-126) U/L Troponin I (0.000-0.034) ng/mL Total Protein 7.5 (6.3-8.2) g/dL Albumin 4.4 (3.5-5.0) g/dL TSH 1.490 (0.465-4.680) mIU/L Free T4 1.51 (0.78-2.19) ng/dL Urine Opiates Screen Not Detected (NotDetected) Ur Oxycodone Screen Not Detected (NotDetected) Urine Methadone Screen Not Detected (NotDetected) Ur Propoxyphene Screen Not Detected (NotDetected) Ur Barbiturates Screen Not Detected (NotDetected) U Tricyclic Antidepress Not Detected (NotDetected) Ur Phencyclidine Scrn Not Detected (NotDetected) Ur Amphetamines Screen Not Detected (NotDetected) U Methamphetamines Scrn Not Detected (NotDetected) U Benzodiazepines Scrn Not Detected (NotDetected) Urine Cocaine Screen Not Detected (NotDetected) U Marijuana (THC) Screen Not Detected (NotDetected) 04/13/23 04/13/23 Range/Units 11:47 12:26 WBC (3.8-10.6) k/uL RBC (3.80-5.40) m/uL Hgb (11.4-16.0) gm/dL Hct (34.0-46.0) % MCV (80.0-100.0) fL MCH (25.0-35.0) pg MCHC (31.0-37.0) g/dL RDW (11.5-15.5) % Plt Count (150-450) k/uL MPV Neutrophils % % Lymphocytes % % Monocytes % % Eosinophils % % Basophils % % Neutrophils # (1.3-7.7) k/uL Lymphocytes # (1.0-4.8) k/uL Monocytes # (0-1.0) k/uL Eosinophils # (0-0.7) k/uL Basophils # (0-0.2) k/uL PT 11.1 (10.0-12.5) sec INR 1.0 (<1.2) APTT 22.2 (22.0-30.0) sec Sodium (137-145) mmol/L Potassium (3.5-5.1) mmol/L Chloride (98-107) mmol/L Carbon Dioxide (22-30) mmol/L Anion Gap mmol/L BUN (7-17) mg/dL Creatinine (0.52-1.04) mg/dL Est GFR (CKD-EPI)AfAm (>60 ml/min/1.73 sqM) Est GFR (CKD-EPI)NonAf (>60 ml/min/1.73 sqM) Glucose (74-99) mg/dL Calcium (8.4-10.2) mg/dL Magnesium (1.6-2.3) mg/dL Total Bilirubin (0.2-1.3) mg/dL AST (14-36) U/L ALT (4-34) U/L Alkaline Phosphatase (38-126) U/L Troponin I <0.012 (0.000-0.034) ng/mL Total Protein (6.3-8.2) g/dL Albumin (3.5-5.0) g/dL TSH (0.465-4.680) mIU/L Free T4 (0.78-2.19) ng/dL Urine Opiates Screen (NotDetected) Ur Oxycodone Screen (NotDetected) Urine Methadone Screen (NotDetected) Ur Propoxyphene Screen (NotDetected) Ur Barbiturates Screen (NotDetected) U Tricyclic Antidepress (NotDetected) Ur Phencyclidine Scrn (NotDetected) Ur Amphetamines Screen (NotDetected) U Methamphetamines Scrn (NotDetected) U Benzodiazepines Scrn (NotDetected) Urine Cocaine Screen (NotDetected) U Marijuana (THC) Screen (NotDetected) Disposition Clinical Impression: Tachycardia, Near syncope Disposition: [facility] Referrals: Naz Aj DO [Primary Care Provider] - 1-2 days Time of Disposition: 13:38
[2023-04-13 12:32] LABS: T4, Free (Free Thyroxine) 1.51 ng/dL (0.78-2.19)
[2023-04-13 12:38] LABS: Potassium 3.7 mmol/L (3.5-5.1)
[2023-04-13 13:10] LABS: Partial Thromboplastin Time 22.2 sec (22.0-30.0); Prothrombin Time 11.1 sec (10.0-12.5)
[2023-04-13] MEDS ORDERED: ALPRAZolam 0.25 MG TAB PO PRN (14:41)
--- NOTE | 2023-04-14 00:49 | P.HPIM ---
History of Present Illness H&P Date: 04/13/23 Chief Complaint: Near syncope 32-year-old female with a past medical history of Leslye's disease, anxiety and prior history of vaping presents to ER with complaints of lightheadedness, heart beating fast and near syncopal episodes for the past 1 month. Patient states that her symptoms started with heart beating fast associated mild shortness of breath and she feels very lightheaded and was having near syncopal episode. He becomes diaphoretic. She has to stay on the ground for about 3 to 4 minutes and her symptoms gets worse with getting up and moving. Otherwise p atient denies any loss of consciousness. No focal weakness. No headache. Patient states that she had Holter monitor for about 2 weeks by her primary care physician. She had a workup done including echocardiogram. Patient states that she has been having generalized weakness and fatigue and multiple other symptoms for almost a year. She was seen by endocrinology and rheumatology at [facility]. Her workup including autoimmune, rheumatoid arthritis has essentially been negative. Patient has been having increasing frequency of this episodes with lightheadedness and tachycardia and came to ER for further evaluation. She has never seen by cardiology previously. Patient otherwise denies any complaints of fever or chills. No cough or sputum production. No nausea vomiting or abdominal pain or diarrhea. No leg swelling. Chest x-ray showed no acute cardiopulmonary process. EKG showed sinus rhythm with marked sinus arrhythmia. On admission blood pressure 122/90 pulse 65 respiration 18 and pulse ox 100% on room air. Laboratory data showed WBC 12.5, hemoglobin 13.7 and platelets 292 Sodium 139, potassium 3.7 chloride 107 bicarb 20 BUN 11 creatinine 0.6 and blood sugar 87 TSH 1.49 and free T4 level is 1.51. UDS negative. Review of Systems Constitutional: Patient denies any fever or chills . Generalized weakness and fatigue. Abdomen: Patient denied any nausea or vomiting or abd. pain Cardiovascular: Patient denies any chest pain or short of breath no palpitations currently. No leg swelling. Respiratory: patient denied any cough . no sputum production. No shortness of breath Neurologic: Patient denied any numbness or tingling or headache. Patient complains of generalized weakness and fatigue. Musculoskeletal: Patient denies any complaints of joint swelling or deformity. Skin: Negative Psychiatric: Negative Endocrine: No heat or cold intolerance. No recent weight gain. Genitourinary: No dysuria or hematuria. All other 14 point ROS negative except the above Past Medical History Past Medical History: Thyroid Disorder Additional Past Medical History / Comment(s): Leslye History of Any Multi-Drug Resistant Organisms: None Reported Past Surgical History: No Surgical Hx Reported Past Psychological History: Anxiety Smoking Status: Vaper Past Alcohol Use History: Occasional Past Drug Use History: None Reported Medications and Allergies Home Medications Medication Instructions Recorded Confirmed Type ALPRAZolam [Xanax] 0.25 mg PO BID PRN 04/13/23 04/13/23 History methylPREDNISolone Dose Pack See Taper PO DIRECTED 04/13/23 04/13/23 History [Medrol Dose Pack] Allergies Allergy/AdvReac Type Severity Reaction Status Date / Time No Known Allergies Allergy Verified 04/13/23 14:01 Physical Exam Vitals: Vital Signs Temp Pulse Pulse Resp BP Pulse Ox 04/13/23 12:40 65 17 100 04/13/23 12:38 62 100 04/13/23 12:36 58 L 100 04/13/23 12:34 63 100 04/13/23 12:32 69 100 04/13/23 12:30 66 94 L 04/13/23 12:29 77 04/13/23 12:10 67 98 04/13/23 12:08 64 99 04/13/23 12:06 76 99 04/13/23 12:04 68 100 04/13/23 12:02 65 17 100 04/13/23 12:00 68 100 04/13/23 11:58 66 100 04/13/23 11:56 63 17 99 04/13/23 11:54 65 100 04/13/23 11:52 77 19 100 04/13/23 11:50 66 100 04/13/23 11:48 71 18 100 04/13/23 11:46 68 100 04/13/23 11:44 66 100 04/13/23 11:42 68 100 04/13/23 11:40 86 99 04/13/23 11:38 68 100 04/13/23 11:36 87 100 04/13/23 11:34 75 100 04/13/23 11:32 89 99 04/13/23 11:30 78 100 04/13/23 11:28 98 17 100 04/13/23 11:26 69 18 100 04/13/23 11:24 97 12 100 04/13/23 10:58 94 04/13/23 10:54 99.1 F 65 18 122/90 100 Intake and Output 04/12/23 04/13/23 04/13/23 22:59 06:59 14:59 Other: Weight 62.596 kg PHYSICAL EXAMINATION: Patient is lying in the bed comfortably, no acute distress, awake alert and oriented.. HEENT: Normocephalic. Neck is supple. Pupils reactive. Nostrils clear. Oral cavity is moist. Neck reveals no JVD, carotid bruits, or thyromegaly. CHEST EXAMINATION: Trachea is central. Symmetrical expansion. Lung haney clear to auscultation and percussion. CARDIAC: Normal S1, S2 with no gallops. No murmurs ABDOMEN: Soft. Bowel sounds present. Nontender. No organomegaly. No abdominal bruits. Extremities: reveal no edema. No clubbing or cyanosis Neurologically awake, alert, oriented x3 with well-coordinated movements. No focal deficits noted Skin: No rash or skin lesions. Psychiatric: Coperative. Nonsuicidal, Musculoskeletal: No joint swelling or deformity. Normal range of motion. Results CBC & Chem 7: 04/13/23 11:47 04/13/23 11:47 Labs: Abnormal Lab Results - Last 24 Hours (Table) 04/13/23 04/13/23 Range/Units 11:47 11:47 WBC 12.5 H (3.8-10.6) k/uL Neutrophils # 8.1 H (1.3-7.7) k/uL Carbon Dioxide 20 L (22-30) mmol/L Thrombosis Risk Factor Assmnt - DVT/VTE Prophylaxis DVT/VTE Prophylaxis: Pharmacologic Prophylaxis ordered Assessment and Plan Assessment: Near syncopal episode with tachycardia. Rule out arrhythmia. Generalized weakness and fatigue and multiple other symptoms for the past 1 week and is being followed with endocrinology and dermatology as an outpatient. Anxiety History of vaping History of Lselye's disease DVT prophylaxis with SCDs Plan: Patient will be continued on telemonitoring. TSH 33 T4 levels within normal limits. Cardiology was consulted for further evaluation. Follow-up CBC and BMP tomorrow. Patient's previous records reviewed from her file. Continue to follow closely. Time with Patient: Greater than 30
[2023-04-14 08:25] LABS: Basophils # (A) 0.06 X 10*3/uL (0.00-0.10); Basophils % (A) 0.6 %; Eosinophils # (A) 0.09 X 10*3/uL (0.04-0.35); Eosinophils % (A) 0.9 %; HCT 40.2 % (37.2-46.3); Lymphocytes # (A) 4.28 X 10*3/uL (0.90-5.00); Lymphocytes % (A) 42.7 %; MCH 30.2 pg (27.0-32.0); MCHC 32.3 g/dL (32.0-37.0); MCV 93.3 FL (80.0-97.0); Mean Platelet Volume 10.7 FL (9.5-12.2); Monocytes # (A) 1.04 X 10*3/uL (0.20-1.00); Monocytes % (A) 10.4 %; NRBC Per 100 WBC 0 X 10*3/uL (0.00-0.01); Neutrophils # (A) 4.53 X 10*3/uL (1.80-7.70); Neutrophils % (A) 45.1 %; Platelet Count 296 X 10*3/uL (140-440); RBC 4.31 X 10*6/uL (4.10-5.20); RDW 12.6 % (11.5-14.5); WBC 10.03 X 10*3/uL (4.50-10.00)
[2023-04-14 09:02] LABS: BUN/Creat Ratio 18.12 Ratio (12.00-20.00); Blood Urea Nitrogen 14.5 mg/dL (9.0-27.0); Calcium 8.9 mg/dL (8.7-10.3); Carbon Dioxide 23.7 mmol/L (21.6-31.8); Chloride 106 mmol/L (96-109); Glucose 85 mg/dL (70-110); Potassium 4.6 mmol/L (3.5-5.5); Sodium 138 mmol/L (135-145)
--- NOTE | 2023-04-14 10:52 | P.CRDCN ---
History of Present Illness History of present illness: HISTORY OF PRESENT ILLNESS: This is a 32-year-old female with a past medical history significant for anxiety and nicotine dependence. 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 We have been asked to see the patient in consultation for tachycardia. Patient examined at the bedside. Patient states she has been having issues since the beginning of February with tachycardia. She states on March 06 she had an episode at work where her heart rate went into the 160s. She states it will last for a few minutes. She reports feeling dizzy and nauseated when this happens. She also reports fine short of breath. She states that she has to lay on the floor sometimes for almost 90 minutes. She states the symptoms are now occurring on a daily basis. She does report having symptoms after she eats. She also reports yesterday she had an episode of chest pain in middle of her chest that went down her left arm. She reports having palpitations after the episode of chest pain. She denies any caffeine use. Denies any alcohol use. She vapes nicotine but states she quit on 03/27/2023. She reports having a recent echocardiogram performed at [facility]. She also had a 2 week event monitor that was ordered by her PCP which revealed sinus mechanism with episodes of tachycardia but no arrhythmias noted. * EKG reveals sinus mechanism with nonspecific ST-T wave changes * Chest xray negative for acute process * Laboratory data: Troponin negative 1. Potassium 4.6. Magnesium 1.9. TSH 1.490. * Current home cardiac medications include none REVIEW OF SYSTEMS: At the time of my exam: CONSTITUTIONAL: Denies fever or chills. HEENT: Denies blurred vision, vision changes, or eye pain. Denies hemoptysis CARDIOVASCULAR: Denies chest pain. Denies orthopnea. Denies PND. Denies palpitations RESPIRATORY: Denies shortness of breath. GASTROINTESTINAL: Denies abdominal pain. Denies nausea or vomiting. HEMATOLOGIC: Denies bleeding disorders. GENITOURINARY: Denies any blood in urine. SKIN: Denies pruitis. Denies rash. PHYSICAL EXAM: VITAL SIGNS: Reviewed. GENERAL: Well-developed in no acute distress. HEENT: Head is normocephalic. Pupils are equal, round. Sclerae anicteric. Mucous membranes of the mouth are moist. Neck supple. No JVD or thyromegaly LUNGS: Respirations even and unlabored. Lungs essentially clear to auscultation bilaterally. HEART: Regular rate and rhythm. S1 and S2 heard. ABDOMEN: Soft. Nondistended. Nontender. EXTREMITIES: Normal range of motion. No clubbing or cyanosis. Peripheral pulses intact. No lower extremity edema NEUROLOGIC: Awake and alert. Oriented x 3. ASSESSMENT: Palpitations with shortness of breath, dizziness, nausea, and presyncope Nicotine dependence, patient vapes, quit 03/27/2023 Anxiety PLAN: Obtain report of echocardiogram performed at [facility] [place] Continue telemetry monitoring Patient to undergo stress echocardiogram today to assess for ischemia and/or arrhythmias Further recommendations pending patient's course Nurse practitioner note has been reviewed by physician. Signing provider agrees with the documented findings, assessment, and plan of care. Past Medical History Past Medical History: Thyroid Disorder Additional Past Medical History / Comment(s): Leslye History of Any Multi-Drug Resistant Organisms: None Reported Past Surgical History: No Surgical Hx Reported Past Anesthesia/Blood Transfusion Reactions: No Reported Reaction Past Psychological History: Anxiety Smoking Status: Vaper Past Alcohol Use History: Occasional Past Drug Use History: None Reported Medications and Allergies Home Medications Medication Instructions Recorded Confirmed Type ALPRAZolam [Xanax] 0.25 mg PO BID PRN 04/13/23 04/13/23 History methylPREDNISolone Dose Pack See Taper PO DIRECTED 04/13/23 04/13/23 History [Medrol Dose Pack] Allergies Allergy/AdvReac Type Severity Reaction Status Date / Time No Known Allergies Allergy Verified 04/13/23 14:01 Physical Exam Vitals: Vital Signs Temp Pulse Pulse Pulse Resp BP BP 04/14/23 07:00 98.7 F 67 16 109/65 04/14/23 02:09 98.4 F 76 15 114/63 04/13/23 19:05 98.5 F 79 15 108/67 04/13/23 17:02 70 16 114/75 04/13/23 14:45 98.4 F 68 16 04/13/23 12:40 65 17 04/13/23 12:38 62 04/13/23 12:36 58 L 04/13/23 12:34 63 04/13/23 12:32 69 04/13/23 12:30 66 04/13/23 12:29 77 04/13/23 12:10 67 04/13/23 12:08 64 12/18/23 12:06 76 04/13/23 12:04 68 04/13/23 12:02 65 17 04/13/23 12:00 68 04/13/23 11:58 66 04/13/23 11:56 63 17 04/13/23 11:54 65 04/13/23 11:52 77 19 04/13/23 11:50 66 04/13/23 11:48 71 18 04/13/23 11:46 68 04/13/23 11:44 66 04/13/23 11:42 68 04/13/23 11:40 86 04/13/23 11:38 68 04/13/23 11:36 87 04/13/23 11:34 75 04/13/23 11:32 89 04/13/23 11:30 78 04/13/23 11:28 98 17 04/13/23 11:26 69 18 04/13/23 11:24 97 12 04/13/23 10:58 94 04/13/23 10:54 99.1 F 65 18 122/90 BP Pulse Ox 04/14/23 07:00 100 04/14/23 02:09 98 04/13/23 19:05 98 04/13/23 17:02 100 04/13/23 14:45 133/76 100 04/13/23 12:40 100 04/13/23 12:38 100 04/13/23 12:36 100 04/13/23 12:34 100 04/13/23 12:32 100 04/13/23 12:30 94 L 04/13/23 12:29 04/13/23 12:10 98 04/13/23 12:08 99 04/13/23 12:06 99 04/13/23 12:04 100 04/13/23 12:02 100 04/13/23 12:00 100 04/13/23 11:58 100 04/13/23 11:56 99 04/13/23 11:54 100 04/13/23 11:52 100 04/13/23 11:50 100 04/13/23 11:48 100 04/13/23 11:46 100 04/13/23 11:44 100 04/13/23 11:42 100 04/13/23 11:40 99 04/13/23 11:38 100 04/13/23 11:36 100 04/13/23 11:34 100 04/13/23 11:32 99 04/13/23 11:30 100 04/13/23 11:28 100 04/13/23 11:26 100 04/13/23 11:24 100 04/13/23 10:58 04/13/23 10:54 100 Intake and Output 04/13/23 04/14/23 04/14/23 22:59 06:59 14:59 Other: # Voids 2 1 Weight 62.596 kg Results 04/14/23 05:41 04/14/23 05:41 Cardiac Enzymes 04/13/23 04/13/23 Range/Units 11:47 11:47 AST 23 (14-36) U/L Troponin I <0.012 (0.000-0.034) ng/mL Coagulation 04/13/23 Range/Units 12:26 PT 11.1 (10.0-12.5) sec APTT 22.2 (22.0-30.0) sec CBC 04/13/23 04/14/23 Range/Units 11:47 05:41 WBC 12.5 H 10.03 H (3.8-10.6) k/uL RBC 4.57 4.31 (3.80-5.40) m/uL Hgb 13.7 13.0 (11.4-16.0) gm/dL Hct 42.2 40.2 (34.0-46.0) % Plt Count 292 296 (150-450) k/uL Comprehensive Metabolic Panel 04/13/23 Range/Units 11:47 Sodium 139 (137-145) mmol/L Potassium 3.7 (3.5-5.1) mmol/L Chloride 107 (98-107) mmol/L Carbon Dioxide 20 L (22-30) mmol/L BUN 11 (7-17) mg/dL Creatinine 0.60 (0.52-1.04) mg/dL Glucose 87 (74-99) mg/dL Calcium 9.4 (8.4-10.2) mg/dL AST 23 (14-36) U/L ALT 21 (4-34) U/L Alkaline Phosphatase 56 (38-126) U/L Total Protein 7.5 (6.3-8.2) g/dL Albumin 4.4 (3.5-5.0) g/dL Current Medications Generic Name Dose Route Start Last Admin Trade Name Freq PRN Reason Stop Dose Admin Alprazolam 0.25 mg 04/13/23 14:41 Alprazolam 0.25 Mg Tab PO BID PRN Anxiety Intake and Output 04/13/23 04/14/23 04/14/23 22:59 06:59 14:59 Other: # Voids 2 1 Weight 62.596 kg 04/14/23 05:41 04/13/23 11:47
--- NOTE | 2023-04-14 12:24 | CA ---
Stress Echo Report Amanda Slaughter Age: 32 Gender: F : 1990 Exam Date: 04/14/2023 11:20 Exam Location: [facility] Ht (in): 60 Wt (lb): 138 Ordering Physician: Елена Gutiérrez Referring Physician: [id number] Operator: DAVID DUARTE Technologist Procedure CPT: Indication: palpitations, dizziness, CP ICD-9 Codes: Rhythm: Patient History: CP, MEGHAN, PALP, FAMILY HX, TOB, Cardiac Medications: SEE CHART Medications in past 24 hours: Contrast: Stress Results Protocol: Ian Total dose(mL): Exercise Duration (min:sec): 4:[address] Depression (mm): Angina Score: Arboleda Score: METS: 5.8 Resting HR: 67 Resting BP: 113 / 44 Peak HR: 175 Peak BP: 150 / 61 Max Predicted HR: 186 94 % Max Predicted HR Target HR: 158 Double Product: [id number] Stress Summary: The patient's target heart rate was achieved BP Response: Normal Reason for Termination: Reached target heart rate or work-load Cardiac Symptoms: ECG Analysis Resting ECG: Normal sinus rhythm, normal ECG Stress ECG: No abnormal ST/T wave changes with exercise Arrhythmia: None Echo Analysis Resting Echo: Normal resting echocardiogram. Peak Echo Analysis: Normal wall thickening and motion MEASUREMENTS (Male/Female) Normal Values CONCLUSIONS 1. Decreased exercise tolerance with no evidence of electrocardiographic stress-induced ischemia 2. No arrhythmia 3. Normal stress echocardiogram with no evidence of stress induced ischemia Dr. Etelvina Cross MD (Electronically Signed) Final Date: 14 April 2023 12:23
[2023-04-14 14:04] VITALS: BP 107/63; PULSE 99; RESP 14; TEMP 98.4
--- NOTE | 2023-04-18 06:00 | P.DS ---
Providers Date of admission: 04/13/23 13:39 Expected date of discharge: 04/14/23 Attending physician: Lydia Gilliam Primary care physician: Naz Pickett Hospital Course: Final diagnosis Near syncopal episode with tachycardia. Ruled out arrhythmia. Generalized weakness and fatigue and multiple other symptoms for the past 1 week and is being followed with endocrinology and dermatology as an outpatient. 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 Patient will follow-up with Dr. Pickett in the outpatient setting upon discharge. Patient is to continue with close outpatient follow-up with cardiology as scheduled. Total time taken is greater than 35 minutes. Hospital course This is a 32-year-old female who was recently admitted with near syncopal episode with feelings of increased heart rate and palpitations. Patient seen and evaluated by cardiology recommending stress testing which was negative. Patient has been cleared by etiology for outpatient follow-up. Patient also had recently gone to [place] and had an echo and event monitor done with reports ever pending. Requested medical records. Patient to follow-up with primary care provider as well as cardiology outpatient. Please refer to cardiology note for further HPI. patient continues to feel frustrated she has no answers and continues to feel the same way. Patient is denying that the symptoms are due to anxiety. Currently no reports of chest pain, shortness of breath, or palpitations. Patient is afebrile. No reports of nausea or vomiting and patient is tolerating diet. Patient will be discharged home today. guarded prognosis and high risk for readmission. Physical exam: Gen: This is a 32-year-old female who is awake, alert and oriented 3, thin built, tearful on exam HEENT: Head is atraumatic, normocephalic. Pupils equal, round. Sclerae is anicteric. NECK: Supple. No JVD. No lymphadenopathy. No thyromegaly. LUNGS: Clear to auscultation. No wheezes or rhonchi. No intercostal retractions. HEART: Regular rate and rhythm. No murmur. ABDOMEN: Soft. Bowel sounds are present. No masses. No tenderness. EXTREMITIES: No pedal edema. No calf tenderness. NEUROLOGICAL: Patient is awake, alert and oriented x3. Cranial nerves 2 through 12 are grossly intact. Please refer to medication reconciliation sheet for a list of medications. The impression and plan of care has been dictated by Amrita Zaidi, Nurse Practitioner as directed. Dr. Tawana MD I have performed a history and examination and MDM of this patient, discussed the same with the dictator, and agree with the dictator's assessment and plan as written ,documented as a scribe. Based on total visit time, I have performed more than 50% of the visit. Patient Condition at Discharge: Fair Plan - Discharge Summary New Discharge Prescriptions: Continue ALPRAZolam [Xanax] 0.25 mg PO BID PRN PRN Reason: Anxiety methylPREDNISolone Dose Pack [Medrol Dose Pack] See Taper PO DIRECTED Discharge Medication List ALPRAZolam [Xanax] 0.25 mg PO BID PRN 04/13/23 [History] methylPREDNISolone Dose Pack [Medrol Dose Pack] See Taper PO DIRECTED 04/13/23 [History] Follow up Appointment(s)/Referral(s): Etelvina Cross MD [STAFF PHYSICIAN] - 1 Week (Office will call with appointment time and date.) Naz Pickett DO [Primary Care Provider] - 1-2 days Activity/Diet/Wound Care/Special Instructions: Activity Limited until follow-up Follow-up with primary care provider and/or establish with a new primary care provider in the outpatient setting Follow-up with cardiology in 1-2 weeks Discharge/Stand Alone Forms: Work/Release Restrictions Form Discharge Disposition: HOME SELF-CARE
== END 2023-04-14 15:47 | disposition home or self-care (01) ==
LOC: EC 10:52 → 6NMEDSUR 13:39
PROVIDERS: ADMIT Internal Medicine; ATTEND Internal Medicine
DX: R55 Syncope and collapse (principal); R00.0 Tachycardia, unspecified; R07.9 Chest pain, unspecified; R00.2 Palpitations; R61 Generalized hyperhidrosis; R06.02 Shortness of breath; R53.1 Weakness; R53.83 Other fatigue; E06.3 Autoimmune thyroiditis; F41.9 Anxiety disorder, unspecified; F17.290 Nicotine dependence, other tobacco product, uncomplicated
CPT/HCPCS: 96360; 99285; 36415; 93005; 93351; 84439; 80053; 80048; 83735; 84443; 84484; 85025 ×2; 85610; 85730; 80306; 71046; G0378 ×2